=== PATIENT | male | born 1990 | race Hispanic/Latino ===

== ENCOUNTER 2024-06-11 20:39 | Emergency (ER) | payer OTHER ==
[2024-06-11] MEDS ORDERED: LIDOCAINE 1% MPF 5 ML VIAL ONE (21:56)
--- NOTE | 2024-06-11 22:38 | ER ---
Nurse's Notes [facility] Name: Heath Padilla Jr Age: 33 yrs Sex: Male : 1990 Arrival Date: 06/11/2024 Time: 20:39 Bed 7 Private MD: Diagnosis: Abrasion to elbow;Laceration to back Presentation: 06/11 21:11 Chief complaint: Patient states: He was fishing and fell of pier and landed on rocks. cm10 Pt has lacerations to left elbow and to mid back. Coronavirus screen: Client denies travel out of the [place] in the last 14 days. Ebola Screen: Patient denies travel to an Ebola-affected area in the 21 days before illness onset. Initial Sepsis Screen: Does the patient meet any 2 criteria? No. Patient's initial sepsis screen is negative. Does the patient have a suspected source of infection? No. Patient's initial sepsis screen is negative. Risk Assessment: Do you want to hurt yourself or someone else? Patient reports no desire to harm self or others. Onset of symptoms was June 11, 2024. 21:11 Method Of Arrival: Ambulatory cm10 21:11 Acuity: YUE 4 cm10 Triage Assessment: 21:12 General: Appears in no apparent distress. comfortable, Behavior is calm, cooperative. cm10 Pain: Complains of pain in back and left arm. Neuro: No deficits noted. Level of Consciousness is awake, alert, obeys commands, Oriented to person, place, time, situation, Appropriate for age. Respiratory: No deficits noted. Airway is patent Respiratory effort is even, unlabored, Respiratory pattern is regular, symmetrical. Injury Description: Laceration sustained to mid back area and left elbow. Historical: - Allergies: 21:13 No Known Allergies; cm10 - Home Meds: 21:13 None [Active]; cm10 - PMHx: 21:13 None; cm10 - PSHx: 21:13 None; cm10 - Immunization history:: Adult Immunizations up to date, Last tetanus immunization: up to date. - Infectious Disease History:: Denies. - Social history:: Smoking status: Patient denies any tobacco usage or history of. - Family history:: not pertinent. Screenin:00 [facility] ED Fall Risk Assessment (Adult) History of falling in the last 3 months, ha1 including since admission Yes- single mechanical fall (1 pt) Confusion or Disorientation Intoxicated or Sedated No (0 pts) Impaired Gait No (0 pts) Mobility Assist Device Used No (0 pt) Altered Elimination No (0 pt) Score/Fall Risk Level 3 or more points = High Risk Oriented to surroundings, Maintained a safe environment, Educated pt \T\ family on fall prevention, incl call for assistance when getting out of bed, Hourly rounding (assess needs \T\ fall precautionary measures) done. Abuse screen: Denies threats or abuse. Denies injuries from another. Nutritional screening: No deficits noted. Tuberculosis screening: No symptoms or risk factors identified. Primary Survey: 21:13 Breathing/Chest: Spontaneous respiratory effort, equal unlabored respirations, breath ha1 sounds clear bilaterally, regular pattern, symmetrical chest rise and fall. Circulation: No external hemorrhage present. Regular and strong central pulse, skin warm/dry/normal color. Disability Pupils are equal, round, reactive to light and accommodation. Exposure/Environment: All clothing and personal items were removed. Forensic evidence collection is not deemed to be indicated at this time. Items placed in patient belonging bag. There is no evidence of uncontrolled external bleeding. Assessment: 21:13 General: Appears comfortable, Behavior is calm, cooperative. Pain: Complains of pain in ha1 mid back area Pain currently is 6 out of 10 on a pain scale. Quality of pain is described as burning. Neuro: Level of Consciousness is awake, alert, obeys commands, Oriented to person, place, time, situation. Cardiovascular: Capillary refill < 3 seconds Patient's skin is warm and dry. Respiratory: Airway is patent Respiratory effort is even, unlabored, Respiratory pattern is regular, symmetrical. GI: No signs and/or symptoms were reported involving the gastrointestinal system. Abdomen is round non-distended. Musculoskeletal: Circulation, motion, and sensation intact. Range of motion: intact in all extremities. Injury Description: Abrasion sustained to lumbar area is bleeding, CLEANED, DRESSING APPLIED. 21:57 Reassessment: No changes from previously documented assessment. Patient and/or family vc1 updated on plan of care and expected duration. Pain level reassessed. Patient is alert, oriented x 3, equal unlabored respirations, skin warm/dry/pink. 22:30 Reassessment: Patient and/or family updated on plan of care and expected duration. Pain ha1 level reassessed. Patient is alert, oriented x 3, equal unlabored respirations, skin warm/dry/pink. 23:20 Reassessment: Patient and/or family updated on plan of care and expected duration. Pain ha1 level reassessed. Patient is alert, oriented x 3, equal unlabored respirations, skin warm/dry/pink. Patient states feeling better. Patient states symptoms have improved. Vital Signs: 21:11 BP 124 / 88; Pulse 74; Resp 15; Temp 98.2(O); Pulse Ox 99% on R/A; Weight 95.25 kg; cm10 Height 5 ft. 9 in. ; Pain 7/10; 21:54 BP 117 / 83; Pulse 73; Resp 15; Pulse Ox 99% ; vc1 21:11 Body Mass Index 31.01 (95.25 kg, 175.26 cm) cm10 21:11 Pain Scale: Adult cm10 ED Course: 20:43 Patient arrived in ED. jj6 20:54 Carlos Hernandez MD is Attending Physician. rt 21:12 Triage completed. cm10 21:13 Arm band placed on right wrist. Patient placed in an exam room, on a stretcher. cm10 21:13 Patient has correct armband on for positive identification. Bed in low position. Call ha1 light in reach. Side rails up X 1. 21:13 Provided Education on: WOUND CARE . ha1 21:23 Marta Nye, RN is Primary Nurse. ha1 22:07 Patient did not have IV access during this emergency room visit. ha1 23:20 No provider procedures requiring assistance completed. ha1 Administered Medications: 22:50 Drug: Lidocaine Infiltration (1 %) 5 ml 5 ml Infiltration once; to bedside {Note: ha1 ADMINISTERED BY DR. HERNANDEZ .} Volume: 5 ml; Route: Infiltration; 23:00 Drug: Doxycycline PO 100 mg PO once Route: PO; ha1 23:18 Follow up: Response: No adverse reaction ha1 Medication: 22:06 VIS not applicable for this client. ha1 Outcome: 22:37 Discharge ordered by . rt 23:20 Discharged to home ambulatory, with family, ha1 23:20 Condition: stable 23:20 Discharge instructions given to patient, family, Instructed on discharge instructions, follow up and referral plans. medication usage, Demonstrated understanding of instructions, follow-up care, medications, wound care, Prescriptions given X 23:21 Patient left the ED. ha1 Signatures: Muriel Boyd [id number] Josie Garcia RN RN vc1 Marta Nye RN RN ha1 Carlos Hernandez MD MD rt Silvina Medina RN RN cm10
--- NOTE | 2024-06-11 22:38 | EDPHYS ---
Physician Documentation [facility] Name: Heath Padilla Jr Age: 33 yrs Sex: Male : 1990 Arrival Date: 06/11/2024 Time: 20:39 Bed 7 Private MD: ED Physician Carlos Hernandez HPI: 06/12 00:58 This 33 yrs old Male presents to ER via Ambulatory with complaints of Back rt Injury, Fall Injury, Laceration To Arm, Lacerations to back. 00:58 Patient presents to the ED with an injury to the left elbow, back. Patient states that rt he was on some [employer] fishing when he fell backwards causing abrasion to the left elbow and a cut to the back. Denies other injury, acute complaints, symptoms are mild in severity, no other aggravating alleviating factors.. Historical: - Allergies: 06/11 21:13 No Known Allergies; cm10 - Home Meds: 21:13 None [Active]; cm10 - PMHx: 21:13 None; cm10 - PSHx: 21:13 None; cm10 - Immunization history:: Adult Immunizations up to date, Last tetanus immunization: up to date. - Infectious Disease History:: Denies. - Social history:: Smoking status: Patient denies any tobacco usage or history of. - Family history:: not pertinent. ROS: 06/12 00:58 Constitutional: Negative for fever, chills, and weight loss, Cardiovascular: Negative rt for chest pain, palpitations, and edema, Respiratory: Negative for shortness of breath, cough, wheezing, and pleuritic chest pain, Abdomen/GI: Negative for abdominal pain, nausea, vomiting, diarrhea, and constipation, Neuro: Negative for headache, weakness, numbness, tingling, and seizure, MS/extremity: Positive for abrasion, Negative for decreased range of motion, deformity, Skin: Positive for abrasion(s), laceration(s), Exam: 00:58 Constitutional: This is a well developed, well nourished patient who is awake, alert, rt and in no acute distress. Head/Face: Normocephalic, atraumatic. Chest/axilla: Normal chest wall appearance and motion. Nontender with no deformity. No lesions are appreciated. Cardiovascular: Regular rate and rhythm with a normal S1 and S2. No gallops, murmurs, or rubs. Normal PMI, no JVD. No pulse deficits. Respiratory: Lungs have equal breath sounds bilaterally, clear to auscultation and percussion. No rales, rhonchi or wheezes noted. No increased work of breathing, no retractions or nasal flaring. Abdomen/GI: Soft, non-tender, with normal bowel sounds. No distension or tympany. No guarding or rebound. No evidence of tenderness throughout. 00:58 Back: Abrasion with about a 2 cm laceration to the back, no midline tenderness, no swelling, 00:58 Musculoskeletal/extremity: Abrasion without laceration to the left elbow, no focal tenderness, no deformities, full range of motion. Vital Signs: 06/11 21:11 BP 124 / 88; Pulse 74; Resp 15; Temp 98.2(O); Pulse Ox 99% on R/A; Weight 95.25 kg; cm10 Height 5 ft. 9 in. ; Pain 7/10; 21:54 BP 117 / 83; Pulse 73; Resp 15; Pulse Ox 99% ; vc1 21:11 Body Mass Index 31.01 (95.25 kg, 175.26 cm) cm10 21:11 Pain Scale: Adult cm10 Laceration: 06/12 00:58 Wound Repair of 2cm ( 0.8in ) subcutaneous laceration to lumbar area. Linear shaped.. rt Distal neuro/vascular/tendon intact. Anesthesia: Local anesthetic administered with 1 mls of 1% lidocaine. Wound prep: Copious irrigation. Skin closed with 1 4-0 Vicryl using simple sutures and sterile technique. Patient tolerated well. MDM: 06/11 21:17 Medical Screening Exam initiated rt 06/12 00:58 Differential diagnosis: Abrasion, laceration. Data reviewed: vital signs, nurses notes. rt Test considered but Not performed: Other Details Low suspicion for elbow fracture, spinal fracture, CTs and x-rays are not indicated. Counseling: I had a detailed discussion with the patient and/or guardian regarding the historical points, exam findings, and any diagnostic results supporting the discharge/admit diagnosis, the need for outpatient follow up, to return to the emergency department if symptoms worsen or persist or if there are any questions or concerns that arise at home. Response to treatment: the patient's symptoms have markedly improved after treatment. ED course: I loosely approximated the laceration, will allow for drainage, inform patient of the rationale, instructed to return for any signs of infection.. 06/11 21:23 Order name: Wound Care; Complete Time: 21:31 rt 06/11 21:23 Order name: Wound dressing; Complete Time: 23:18 rt 06/11 23:18 Order name: Gloves, Sterile; Complete Time: 23:19 ha1 06/11 23:19 Order name: Setup Suture Tray; Complete Time: 23:19 ha1 Administered Medications: 06/11 22:50 Drug: Lidocaine Infiltration (1 %) 5 ml 5 ml Infiltration once; to bedside {Note: ha1 ADMINISTERED BY [address]. HERNANDEZ .} Volume: 5 ml; Route: Infiltration; 23:00 Drug: Doxycycline PO 100 mg PO once Route: PO; ha1 23:18 Follow up: Response: No adverse reaction ha1 Disposition Summary: 06/11/24 22:37 Discharge Ordered Notes: Location: Home rt Problem: new rt Symptoms: have improved rt Condition: Stable rt Diagnosis - Abrasion to elbow rt - Laceration to back rt Followup: rt - With: Private Physician - When: 5 - 6 days - Reason: Discharge Instructions: - Discharge Summary Sheet rt - Abrasion rt - Laceration Care, Adult rt Forms: - Medication Reconciliation Form rt - Antibiotic Education rt - Prescription Opioid Use rt - Patient Portal Instructions rt - Leadership Thank You Letter rt Prescriptions: - Doxycycline Hyclate 100 mg Oral Tablet - take 1 tablet ORAL route every 12 hours; 20 tablet; Refills: 0, Product rt Selection Permitted Signatures: Marta Nye RN RN ha1 Carlos Hernandez MD MD rt Silvina Medina RN RN cm10
[2024-06-11] MEDS ORDERED: DOXYCYCLINE 100 MG CAP PO ONE (22:58)
[2024-06-12 01:45] VITALS: TEMP 98.2; O2SAT 99
[2024-06-12 01:47] VITALS: BP 117/83
== END 2024-06-11 23:21 | disposition home or self-care (01) ==
LOC: ER 20:39
DX: S31.010A Laceration without foreign body of lower back and pelvis without penetration into retroperitoneum, initial encounter (principal); S50.312A Abrasion of left elbow, initial encounter
CPT/HCPCS: 12001; 99283; J2003